=== PATIENT | male | born 1965 | race Caucasian/White ===

== ENCOUNTER 2018-12-07 12:46 | Outpatient (CLI) ==
--- NOTE | 2018-12-07 16:33 | DI ---
Exam: Cervical spine three-view. HISTORY: Cervical spondylosis, degenerative disc disease. Findings: Three images of the cervical spine are submitted. These demonstrate straightening of the usual cervical lordosis with multilevel mild degenerative disc and facet arthropathy. No compression fracture or listhesis. The odontoid process appears intact and normally centered. Atherosclerotic plaque is seen. Impressions: Multilevel mild degenerative disc and facet arthropathy with no compression fracture or listhesis in the cervical spine. Straightening of the usual cervical lordosis which can be seen with positioning and spasm. Atherosclerosis.
--- NOTE | 2018-12-07 16:38 | DI ---
EXAM: Thoracic spine three view HISTORY: Degenerative disc disease COMPARISON: None TECHNIQUE: Three views thoracic spine were performed FINDINGS: Vertebral bodies normal height. No fracture. No subluxation. Mild multilevel chronic di scogenic degenerative disease with intervertebral disc space narrowing, marginal osteophyte formation . Granulomatous calcification. IMPRESSION: Chronic discogenic degenerative disease.
--- NOTE | 2018-12-07 16:39 | DI ---
EXAM: Lumbar spine three view HISTORY: Degenerative disc disease COMPARISON: None TECHNIQUE: Three views lumbar spine were performed FINDINGS: Sacroiliac joints intact. Sacral arcuate intact. Vertebral bodies normal height. No fra cture. Multilevel marginal osteophyte formation. Mild to moderate multilevel intervertebral disc sp prince narrowing. Multilevel facet arthrosis. 4 mm anterolisthesis of L4 on L5. Atherosclerotic vascul ar calcification. IMPRESSION: Chronic discogenic degenerative disease and facet arthrosis.
--- NOTE | 2018-12-08 03:47 | MRI ---
EXAM: MRI lumbar spine without IV contrast. DATE: 07 December 2018. HISTORY: Degenerative disc disease. Lumbar back pain. TECHNIQUE: Sagittal and axial T1W and T2W sequences of the lumbar spine along with sagittal IR and c oronal T2W sequences were obtained using 1.2 Keshia magnet. No IV contrast. COMPARISON: LS spine series and T-spine series 07 December 2018.. FINDINGS: There are five [id number] lumbar vertebra. No lumbar scoliosis is evident. A 2.8 mm anterolisthesis of L4 relative to L5 and 2.4 mm anterolisthesis of L5 relative to S1 are observed. There are questionable bilateral L5 pars interarticularis defects. No acute lumbar fracture or osseo us malignancy is demonstrated. Lumbar vertebrae normal in height. Small osteophytes are seen at sev eral levels. Mild T12-L1, mild L3-4, moderate L4-5, and moderate L5-S1 disc space narrowing is detec shyla. No acute sacral fracture or stress reaction is evident. There is no acute sacroiliitis. Conus medullaris terminates at L1. The visible spinal cord reveals no definitive syrinx, cord edema, myel omalacia, or neoplasm. No retroperitoneal lymphadenopathy, paraspinal mass, or aortic aneurysm is demonstrated. Paraspinal musculature is symmetric bilaterally. Visible portions of the liver, spleen, adrenal glands, and kid neys reveal no definitive abnormality. Limited bowel loops seen are unremarkable. Segmental analysis: T11-12: Normal, except for minor facet arthropathy. T12-L1: Minor posterior disc bulge causes triangulation of the canal. Each foramen is patent. L1-2: Minor posterior disc bulge does not cause central stenosis or foraminal stenosis. L2-3: Minor posterior to foraminal disc bulge causes minor bilateral inferior foraminal encroachment . No central canal stenosis. L3-4: Minor posterior disc bulge and minor facet arthropathy cause minor bilateral foraminal narrowi ng. No central canal stenosis. L4-5: Minor anterolisthesis of L4, pseudodisc bulge, moderate bilateral facet arthropathy and slight ligamentum flavum hypertrophy do not cause central stenosis or foraminal stenosis. Each L4 nerve ro ot contacts the disc bulge just lateral to the foramen. There are small bilateral facet effusions. L5-S1: Minor anterolisthesis of L5, pseudodisc bulge, moderate facet arthropathy, and minor left fac et arthropathy cause slight bilateral foraminal narrowing. Each L5 nerve root contacts the disc bulg e near the lateral margin of the foramen. No central canal stenosis. IMPRESSIONS: 1. Lumbar spine minor spondylosis, multilevel facet arthropathy (especially L4-5), minor subluxation s, and multilevel DDD. 2. Multilevel minor foraminal encroachment. 3. Triangulation of the canal at T12-L1. 4. Chronic Schmorl's nodes at T11 and T12.
== END 2018-12-07 12:47 | disposition home or self-care (01) ==
LOC: RAD 12:46
PROVIDERS: ATTEND Pain Medicine Interventional Pain Medicine
DX: M50.31 Other cervical disc degeneration, high cervical region (principal); M50.321 Other cervical disc degeneration at C4-C5 level; M47.812 Spondylosis without myelopathy or radiculopathy, cervical region; M51.34 Other intervertebral disc degeneration, thoracic region; M51.35 Other intervertebral disc degeneration, thoracolumbar region; M51.36 Other intervertebral disc degeneration, lumbar region; M51.37 Other intervertebral disc degeneration, lumbosacral region